=== PATIENT | female | born 1960 | race Caucasian/White ===

== ENCOUNTER 2016-04-27 17:44 | Emergency (ER) | payer OTHER ==
[~2016-04-27] VITALS: Ht 154.9 cm; Wt 79.0 kg
[2016-04-27 17:57] LABS: GLUCOSE,POINT OF CARE 88 MG/DL (70-110)
[2016-04-27 21:07] LABS: APPEARANCE,URINE CLEAR (CLEAR); GLUCOSE, URINE (UA) NEGATIVE (NEGATIVE); KETONES,URINE NEGATIVE (NEGATIVE); LEUKOCYTE ESTERASE ,URINE NEGATIVE (NEGATIVE); OCCULT BLOOD,URINE MODERATE (NEGATIVE); PROTEIN,URINE NEGATIVE (NEGATIVE)
[2016-04-27 21:09] LABS: BASOPHILS % (AUTO) 0.3 % (0.0-2.0); EOSINOPHILS % (AUTO) 2.1 % (1.0-6.0); HEMATOCRIT 45.2 % (36-46); HEMOGLOBIN 14.8 g/dL (12.0-16.0); LYMPHOCYTES # (AUTO) 4.4 K/uL (1.0-4.8); LYMPHOCYTES % (AUTO) 40.3 % (22.0-44.0); MEAN CORPUSCULAR HEMOGLOBIN 28.8 pg (26.0-34.0); MEAN CORPUSCULAR HGB CONC 32.7 G/dL (31.0-37.0); MEAN CORPUSCULAR VOLUME 88 fL (80-100); MONOCYTES # (AUTO) 0.7 K/uL (0.1-1.0); MONOCYTES % (AUTO) 6.7 % (2.0-9.0); NEUTROPHILS # (AUTO) 5.6 K/uL (1.8-7.7); NEUTROPHILS % (AUTO) 50.6 % (40.0-70.0); PLATELET COUNT (AUTO) 301 K/uL (150-450); RED BLOOD CELL COUNT(AUTO) 5.13 MIL/uL (4.00-5.20); RED CELL DISTRIBUTION WIDTH 13.9 % (11.5-14.5)
[2016-04-27 21:10] LABS: ADD UA MICROSCOPIC YES
[2016-04-27 21:13] LABS: ANION GAP 8 mmol/L (8-16); CALCIUM, TOTAL 9.7 mg/dL (8.8-10.5); CARBON DIOXIDE 31 mmol/L (22-29); CHLORIDE 101 mmol/L (98-107); CREATININE 0.59 mg/dL (0.60-1.30); GLOMERULAR FILTR. RATE CALC > 60 mL/min (>60); POTASSIUM 3.6 mmol/L (3.5-5.1); SODIUM SERUM 140 mmol/L (136-145); UREA NITROGEN, BLOOD 12 mg/dL (7-18)
[2016-04-27] MEDS ORDERED: KETOROLAC TROMETHAMINE 30 MG/ML VIAL IVP ONE (21:15)
[2016-04-27] MEDS ORDERED: VALPROATE SODIUM 500 MG in DEXTROSE 5%-WATER 50 ML IV ONE (21:15)
[2016-04-27] MEDS ORDERED: ONDANSETRON HCL 4 MG/2 ML VIAL IVP ONE ×2 (21:15→22:15)
[2016-04-27] MEDS ORDERED: SODIUM CHLORIDE 0.9% 1,000 ML IV ONE (21:15)
[2016-04-27] MEDS ORDERED: HYDROmorphone 2 MG/ML SYRINGE IVP ONE (21:15)
[2016-04-27 21:18] LABS: SQUAMOUS EPITHELIAL CELL,UR Few /LPF (None Seen)
[2016-04-27 21:20] LABS: WBC,URINE 0-2 /HPF (0-5)
[2016-04-27 21:38] LABS: ALANINE AMINOTRANSFERASE 24 U/L (12-78); ALBUMIN 4.2 g/dL (3.4-5.0); ASPARTATE AMINOTRANSFERASE 14 U/L (15-37); BILIRUBIN,TOTAL 0.2 mg/dL (0.1-1.0); CREATINE KINASE, TOTAL 125 U/L (26-192); TOTAL PROTEIN, SERUM 9.3 g/dL (6.4-8.2)
[2016-04-27 21:39] LABS: B-TYPE NATRIURETIC PEPTIDE 25 pg/mL (0-100)
[2016-04-27] MEDS ORDERED: HydrALAZINE HCL 20 MG/ML VIAL IVP ONE (22:15)
[2016-04-27] MEDS ORDERED: DEXAMETHASONE SOD PHOS 4 MG/ML 5 ML VIAL IVP ONE (22:15)
[2016-04-28] MEDS ORDERED: BARIUM SULFATE 0.1% SUSPENSION 450 ML BOTTLE PO ONE (01:15)
[2016-04-28] MEDS ORDERED: IOVERSOL 350 MG/ML 100 ML VIAL ONE (02:13)
[2016-04-28] MEDS ORDERED: SODIUM CHLORIDE 0.9% 100 ML ONE (02:14)
[2016-04-28] MEDS ORDERED: ACETAMINOPHEN 500 MG TABLET ONE (05:12)
[2016-04-28 05:15] VITALS: BP 122/65
== END 2016-04-28 05:19 | disposition home or self-care (01) ==
LOC: EMS 17:46
DX: G43.909 Migraine, unspecified, not intractable, without status migrainosus (principal); K64.9 Unspecified hemorrhoids; R07.89 Other chest pain; H53.8 Other visual disturbances; R11.0 Nausea; E11.9 Type 2 diabetes mellitus without complications; I10 Essential (primary) hypertension
CPT/HCPCS: 36415; 70450; 71010; 74177; 80053; 80307; 81001; 82550; 82553; 82962; 83690; 83880; 84484; 85025; 93005; 96365; 96375; 96376; 99285; J0360; J1100; J1170; J1885; J2405 ×2; J3490; J7030; J7050; J7060; Q9967; Z7610

== ENCOUNTER 2017-03-26 12:24 | Emergency (ER) | payer OTHER ==
[~2017-03-26] VITALS: Ht 165.1 cm; Wt 67.0 kg
[2017-03-26 13:18] LABS: GLUCOSE,POINT OF CARE 96 MG/DL (70-110)
[2017-03-26 13:20] VITALS: BP 145/94
[2017-03-26] MEDS ORDERED: ACETAMINOPHEN 500 MG TABLET PO ONE (14:45)
[2017-03-26 17:12] LABS: INFLUENZA TYPE A NEGATIVE FOR TYPE A (NEGATIVE); INFLUENZA TYPE B NEGATIVE FOR TYPE B (NEGATIVE)
== END 2017-03-26 17:43 | disposition home or self-care (01) ==
LOC: EMS 12:26
DX: J06.9 Acute upper respiratory infection, unspecified (principal); B34.9 Viral infection, unspecified; E11.9 Type 2 diabetes mellitus without complications; I10 Essential (primary) hypertension
CPT/HCPCS: 82962; 87804; 99285

== ENCOUNTER 2017-08-18 12:30 | Emergency (ER) | payer OTHER ==
[~2017-08-18] VITALS: Ht 160 cm; Wt 85.0 kg
[2017-08-18 12:43] LABS: GLUCOSE,POINT OF CARE 143 MG/DL (70-110)
[2017-08-18] MEDS ORDERED: IBUPROFEN 600 MG TABLET PO ONE (13:15)
[2017-08-18 15:12] VITALS: BP 148/68
== END 2017-08-18 16:09 | disposition home or self-care (01) ==
LOC: EMS 12:30
DX: S90.31XA Contusion of right foot, initial encounter (principal); E11.9 Type 2 diabetes mellitus without complications; I10 Essential (primary) hypertension; W20.8XXA Other cause of strike by thrown, projected or falling object, initial encounter; Y93.89 Activity, other specified; Y92.89 Other specified places as the place of occurrence of the external cause; Y99.8 Other external cause status
CPT/HCPCS: 99284

== ENCOUNTER 2017-11-01 11:50 | Emergency (ER) | payer OTHER ==
[~2017-11-01] VITALS: Ht 157.5 cm; Wt 80.0 kg
[2017-11-01 12:03] VITALS: BP 149/68
[2017-11-01 12:14] LABS: GLUCOSE,POINT OF CARE 105 MG/DL (70-110)
[2017-11-01] MEDS ORDERED: HYDR25TA PO (12:16)
[2017-11-01] MEDS ORDERED: ASPI81 PO (12:16)
== END 2017-11-01 14:22 | disposition home or self-care (01) ==
LOC: EMS 11:52
DX: M79.671 Pain in right foot (principal); I10 Essential (primary) hypertension; F32.9 Major depressive disorder, single episode, unspecified; E11.9 Type 2 diabetes mellitus without complications; G43.909 Migraine, unspecified, not intractable, without status migrainosus; Z76.0 Encounter for issue of repeat prescription; Z79.82 Long term (current) use of aspirin
CPT/HCPCS: 99283

== ENCOUNTER 2019-01-08 14:08 | Emergency (ER) | payer OTHER ==
[~2019-01-08] VITALS: Ht 152.4 cm; Wt 83.2 kg
[~2019-01-08 14:08] MED LIST: ASPI81 PO; HYDR25TA PO
[2019-01-08 15:09] LABS: BASOPHILS % (AUTO) 0.2 % (0.0-2.0); HEMATOCRIT 39.9 % (36-46); HEMOGLOBIN 13.3 g/dL (12.0-16.0); LYMPHOCYTES # (AUTO) 3.1 K/uL (1.0-4.8); LYMPHOCYTES % (AUTO) 43.8 % (22.0-44.0); MEAN CORPUSCULAR HEMOGLOBIN 29.5 pg (26.0-34.0); MEAN CORPUSCULAR HGB CONC 33.3 G/dL (31.0-37.0); MEAN CORPUSCULAR VOLUME 89 fL (80-100); MONOCYTES # (AUTO) 0.6 K/uL (0.1-1.0); MONOCYTES % (AUTO) 8.3 % (2.0-9.0); NEUTROPHILS # (AUTO) 3.2 K/uL (1.8-7.7); NEUTROPHILS % (AUTO) 44.7 % (40.0-70.0); PLATELET COUNT (AUTO) 285 K/uL (150-450); RED BLOOD CELL COUNT(AUTO) 4.51 MIL/uL (4.00-5.20); RED CELL DISTRIBUTION WIDTH 14.1 % (11.5-14.5)
[2019-01-08 15:19] LABS: ANION GAP 9 mmol/L (8-16); CALCIUM, TOTAL 9.3 mg/dL (8.8-10.5); CARBON DIOXIDE 29 mmol/L (22-29); CHLORIDE 105 mmol/L (98-107); CREATININE 0.71 mg/dL (0.60-1.30); GLOMERULAR FILTR. RATE CALC > 60 mL/min (>60); GLUCOSE,RANDOM 112 mg/dL (70-110); POTASSIUM 3.5 mmol/L (3.5-5.1); SODIUM SERUM 143 mmol/L (136-145); UREA NITROGEN, BLOOD 17 mg/dL (7-18)
[2019-01-08 15:24] LABS: ALANINE AMINOTRANSFERASE 21 U/L (12-78); ALBUMIN 3.3 g/dL (3.4-5.0); ALKALINE PHOSPHATASE 69 U/L (46-116); ASPARTATE AMINOTRANSFERASE 12 U/L (15-37); BILIRUBIN,TOTAL 0.2 mg/dL (0.1-1.0); TOTAL PROTEIN, SERUM 7.7 g/dL (6.4-8.2)
[2019-01-08 15:52] VITALS: BP 152/91
== END 2019-01-08 16:01 | disposition home or self-care (01) ==
LOC: EMS 14:10
DX: S86.911A Strain of unspecified muscle(s) and tendon(s) at lower leg level, right leg, initial encounter (principal); E11.9 Type 2 diabetes mellitus without complications; I10 Essential (primary) hypertension; G43.909 Migraine, unspecified, not intractable, without status migrainosus; F32.9 Major depressive disorder, single episode, unspecified; W22.8XXA Striking against or struck by other objects, initial encounter; Y93.89 Activity, other specified; Y92.89 Other specified places as the place of occurrence of the external cause; Y99.8 Other external cause status
CPT/HCPCS: 85379; 93005

== ENCOUNTER 2021-11-24 13:52 | Emergency (ER) | payer OTHER ==
[~2021-11-24] VITALS: Ht 170.2 cm; Wt 97.7 kg
[~2021-11-24 13:52] MED LIST changes: +ASPI-1450 PO; -ASPI81 PO; -HYDR25TA PO; +HYDR25TA2 PO
[2021-11-24 19:53] VITALS: BP 149/88
[2021-11-24] MEDS ORDERED: DICLOFENAC SODIUM 1% 100 GM GEL [4GM] TP ONE (20:15)
[2021-11-24] MEDS ORDERED: KETOROLAC TROMETHAMINE 30 MG/ML VIAL IM ONE (20:15)
== END 2021-11-24 20:43 | disposition home or self-care (01) ==
LOC: EMS 13:55
DX: M25.562 Pain in left knee (principal); F32.9 Major depressive disorder, single episode, unspecified; E11.9 Type 2 diabetes mellitus without complications; I10 Essential (primary) hypertension; G43.909 Migraine, unspecified, not intractable, without status migrainosus; K80.80 Other cholelithiasis without obstruction; Z98.890 Other specified postprocedural states; Z90.49 Acquired absence of other specified parts of digestive tract
CPT/HCPCS: 99283; 29505; 82962; 96372; J1885